=== PATIENT | male | born 1980 | race Two or more races ===

== ENCOUNTER 2019-01-15 20:01 | Inpatient (IN) | payer SELFPAY ==
[~2019-01-15] VITALS: Ht 182.9 cm; Wt 102.7 kg
[2019-01-15 20:47] LABS: BASO # 0.1 x10^3/uL (0.0-0.2); BASO % 1 % (0-3); EOS # 0.4 x10^3/uL (0.0-0.7); EOS % 5 % (0-3); HEMATOCRIT 41.4 % (39.0-53.0); HEMOGLOBIN 14.2 g/dL (13.0-17.5); LYMPH # 1.7 x10^3/uL (1.0-4.8); LYMPH % 25 % (24-48); MEAN CORPUSCULAR HEMOGLOBIN 31 pg (25-35); MEAN CORPUSCULAR HGB CONC 34 g/dL (31-37); MEAN CORPUSCULAR VOLUME 91 fL (79-100); MONO # 0.6 x10^3/uL (0.0-1.1); MONO % 8 % (0-9); NEUT # 4.2 x10^3uL (1.8-7.7); NEUT % 61 % (31-73); PLATELET COUNT 173 x10^3/uL (140-400); RED BLOOD COUNT 4.56 x10^6/uL (4.30-5.70); WHITE BLOOD COUNT 6.9 x10^3/uL (4.0-11.0)
[2019-01-15] MEDS ORDERED: IV NORMAL SALINE 1000ML BAG 1,000 ML IV ONE (21:00)
[2019-01-15 21:01] LABS: CALCIUM 9.1 mg/dL (8.5-10.1); CREATININE 1.1 mg/dL (0.7-1.3); GFR 75.7; POTASSIUM 3.9 mmol/L (3.5-5.1)
[2019-01-15 21:08] LABS: ALBUMIN 3.7 g/dL (3.4-5.0); ALBUMIN/GLOBULIN RATIO 1.1 (1.0-1.7); MAGNESIUM 2.4 mg/dL (1.8-2.4); TOTAL BILIRUBIN 0.3 mg/dL (0.2-1.0); TOTAL PROTEIN 7.1 g/dL (6.4-8.2)
[2019-01-15 22:01] LABS: BILIRUBIN,URINE NEGATIVE (NEG); CLARITY,URINE CLOUDY; COLOR,URINE YELLOW; NITRITE,URINE NEGATIVE (NEG); PROTEIN,URINE 30 mg/dL (NEG-TRACE)
[2019-01-15 22:09] LABS: AMORPHOUS SEDIMENT,UR PRESENT /HPF; SQUAMOUS EPITHELIAL CELL,UR FEW /LPF
[2019-01-15 22:10] LABS: BACTERIA,URINE 0 /HPF (0-FEW)
--- NOTE | 2019-01-15 22:41 | RAD ---
CLINICAL HISTORY: Right upper quadrant pain. COMPARISON: None available. TECHNIQUE: Limited ultrasound examination of the right upper quadrant of the abdomen was performed FINDINGS: Liver: The liver measures 17.4 cm in length in the right mid clavicular line. Mild increased echogenicity of the liver relative to the right kidney likely hepatic steatosis. There is no focal abnormality of the liver. Portal and hepatic venous flow is confirmed with normal waveforms. Gallbladder/Biliary: Gallstones are seen within the gallbladder. Mild associated wall thickening is seen measuring up to 4 mm in thickness. Trace pericholecystic fluid. There is pain with direct transducer pressure over the gallbladder.The common bile duct measures 0.7 cm. The right kidney measures 10.6 cm in bipolar length. No focal renal lesion. No hydronephrosis. There is no free fluid in the subhepatic space. IMPRESSION: 1. Cholelithiasis with mild gallbladder wall thickening and trace pericholecystic fluid with associated positive sonographic Moffett's sign. This constellation of sonographic findings would be seen with acute cholecystitis. 2. Fatty liver Electronically signed by: Isaac Ramirez MD (01/15/2019 10:38 PM) [facility]
--- NOTE | 2019-01-15 22:55 | PHYS DOC ---
Past Medical History Past Medical History: Diverticulosis Past Surgical History: Other Additional Past Surgical Histo: right ankle Alcohol Use: Rarely Drug Use: Marijuana Adult General Chief Complaint Chief Complaint: ABDOMINAL PAIN HPI HPI Patient is a 38 year old [f__sex] who presents with [] Review of Systems Review of Systems Constitutional: Denies fever or chills [] Eyes: Denies change in visual acuity, redness, or eye pain [] HENT: Denies nasal congestion or sore throat [] Respiratory: Denies cough or shortness of breath [] Cardiovascular: No additional information not addressed in HPI [] GI: Denies abdominal pain, nausea, vomiting, bloody stools or diarrhea [] : Denies dysuria or hematuria [] Musculoskeletal: Denies back pain or joint pain [] Integument: Denies rash or skin lesions [] Neurologic: Denies headache, focal weakness or sensory changes [] Endocrine: Denies polyuria or polydipsia [] All other systems were reviewed and found to be within normal limits, except as documented in this note. Current Medications Current Medications Current Medications Medications (Trade) Dose Ordered Sig/Lavelle Start Time Stop Time Status Last Admin Dose Admin Sodium Chloride 1,000 ml @ 1,000 mls/hr 1X ONCE 01/15/19 21:00 01/15/19 21:59 DC 01/15/19 20:41 1,000 MLS/HR Allergies Allergies Allergies Coded Allergies Type Severity Reaction Last Updated Verified No Known Drug Allergies 01/15/19 No Physical Exam Physical Exam Constitutional: Well developed, well nourished, no acute distress, non-toxic appearance. [] HENT: Normocephalic, atraumatic, bilateral external ears normal, oropharynx moist, no oral exudates, nose normal. [] Eyes: PERRLA, EOMI, conjunctiva normal, no discharge. [] Neck: Normal range of motion, no tenderness, supple, no stridor. [] Cardiovascular:Heart rate regular rhythm, no murmur [] Lungs & Thorax: Bilateral breath sounds clear to auscultation [] Abdomen: Bowel sounds normal, soft, no tenderness, no masses, no pulsatile masses. [] Skin: Warm, dry, no erythema, no rash. [] Back: No tenderness, no CVA tenderness. [] Extremities: No tenderness, no cyanosis, no clubbing, ROM intact, no edema. [] Neurologic: Alert and oriented X 3, normal motor function, normal sensory fun ction, no focal deficits noted. [] Psychologic: Affect normal, judgement normal, mood normal. [] Current Patient Data Vital Signs Vital Signs Date Time Temp Pulse Resp B/P (MAP) Pulse Ox O2 Delivery O2 Flow Rate FiO2 01/15/19 20:08 98.3 53 16 135/90 (105) 97 98.3 Lab Values Laboratory Tests Test 01/15/19 20:36 01/15/19 21:40 White Blood Count 6.9 x10^3/uL (4.0-11.0) Red Blood Count 4.56 x10^6/uL (4.30-5.70) Hemoglobin 14.2 g/dL (13.0-17.5) Hematocrit 41.4 % (39.0-53.0) Mean Corpuscular Volume 91 fL (79-100) Mean Corpuscular Hemoglobin 31 pg (25-35) Mean Corpuscular Hemoglobin Concent 34 g/dL (31-37) Red Cell Distribution Width 14.0 % (11.5-14.5) Platelet Count 173 x10^3/uL (140-400) Neutrophils (%) (Auto) 61 % (31-73) Lymphocytes (%) (Auto) 25 % (24-48) Monocytes (%) (Auto) 8 % (0-9) Eosinophils (%) (Auto) 5 % (0-3) H Basophils (%) (Auto) 1 % (0-3) Neutrophils # (Auto) 4.2 x10^3uL (1.8-7.7) Lymphocytes # (Auto) 1.7 x10^3/uL (1.0-4.8) Monocytes # (Auto) 0.6 x10^3/uL (0.0-1.1) Eosinophils # (Auto) 0.4 x10^3/uL (0.0-0.7) Basophils # (Auto) 0.1 x10^3/uL (0.0-0.2) Sodium Level 142 mmol/L (136-145) Potassium Level 3.9 mmol/L (3.5-5.1) Chloride Level 104 mmol/L (98-107) Carbon Dioxide Level 29 mmol/L (21-32) Anion Gap 9 (6-14) Blood Urea Nitrogen 17 mg/dL (8-26) Creatinine 1.1 mg/dL (0.7-1.3) Estimated GFR (Cockcroft-Gault) 75.7 BUN/Creatinine Ratio 15 (6-20) Glucose Level 102 mg/dL (70-99) H Calcium Level 9.1 mg/dL (8.5-10.1) Magnesium Level 2.4 mg/dL (1.8-2.4) Total Bilirubin 0.3 mg/dL (0.2-1.0) Aspartate Amino Transferase (AST) 10 U/L (15-37) L Alanine Aminotransferase (ALT) 15 U/L (16-63) L Alkaline Phosphatase 53 U/L (46-116) Total Protein 7.1 g/dL (6.4-8.2) Albumin 3.7 g/dL (3.4-5.0) Albumin/Globulin Ratio 1.1 (1.0-1.7) Lipase 162 U/L (73-393) Urine Collection Type Unknown Urine Color Yellow Urine Clarity Cloudy Urine pH 8.0 Urine Specific [place] 1.025 Urine Protein 30 mg/dL (NEG-TRACE) Urine Glucose (UA) Negative mg/dL (NEG) Urine Ketones (Stick) Negative mg/dL (NEG) Urine Blood Negative (NEG) Urine Nitrite Negative (NEG) Urine Bilirubin Negative (NEG) Urine Urobilinogen Dipstick 1.0 mg/dL (0.2 mg/dL) Urine Leukocyte Esterase Negative (NEG) Urine RBC 1-2 /HPF (0-2) Urine WBC 1-4 /HPF (0-4) Urine Squamous Epithelial Cells Few /LPF Urine Amorphous Sediment Present /HPF Urine Bacteria 0 /HPF (0-FEW) Urine Mucus Marked /LPF Laboratory Tests 01/15/19 20:36 Laboratory Tests 01/15/19 20:36 EKG EKG [] Radiology/Procedures Radiology/Procedures [] Course & Med Decision Making Course & Med Decision Making Pertinent Labs and Imaging studies reviewed. (See chart for details) [] Dragon Disclaimer Dragon Disclaimer This electronic medical record was generated, in whole or in part, using a voice recognition dictation system. Departure Departure Impression: Primary Impression: Acute cholecystitis Disposition: ADMITTED INPATIENT Condition: STABLE Referrals: NO PCP (PCP) JAC YODER DO January 15, 2019 22:55
[2019-01-15] MEDS ORDERED: ONDANSETRON PF 4 MG/2 ML VIAL. IV PRN (23:00)
[2019-01-15] MEDS: fentaNYL PF VIAL 100 MCG/2 ML VIAL IV PRN (23:17)
[2019-01-15 23:50] VITALS: BP 135/94
[2019-01-16] VITALS (13 sets, daily range): BP systolic 113–136; BP diastolic 81–92
--- NOTE | 2019-01-16 01:00 | NUR ---
ADMIT: The patient, VIVI IRENE, 38 y/o, M admitted by MARIO SALGADO III, DO, was given written information regarding hospital policies, unit procedures and contact persons. Pt afebrile and VSS, with c/o mild pain. Admission assessment complete, admit packet reviewed, and valuables were checked and left in room with pt. Pt orientated to room, family at bedside, call light within reach, and will continue to monitor.
[2019-01-16] MEDS: fentaNYL PF VIAL 100 MCG/2 ML VIAL IV PRN ×7 (07:07→22:02)
--- NOTE | 2019-01-16 08:18 | PDOC2 ---
GLEN VERDUZCO INTERNAL AUDIT DIRECTOR 01/16/19 0818: CONSULT Date of Consult Date of Consult DATE: 01/16/19 TIME: 08:15 Reason for Consult Reason for Consult: cholecystitis Referring Physician Referring Physician: ER Identification/Chief Complaint Chief Complaint abdominal pain Source Source: Chart review, Patient History of Present Illness Reason for Visit: Acute onset epigastric, ruq pain yesterday afternoon. Radiation of pain to back. No nausea or emesis. Reports has happened 3-4 times this month, however never this severe. No constipation or diarrhea. Not sure if related to any foods. Seems to just occur Past Medical History Past Medical History no pertinent medical hx Past Surgical History Past Surgical History: No pertinent history Family History Family History: Other (noncontributory to current illness ) Social History <1 pack per day ALCOHOL: rare Drugs: Marijuana Lives: with Family Current Problem List Problem List Problems Medical Problems: (1) Acute cholecystitis Status: Acute Current Medications Current Medications Current Medications Sodium Chloride 1,000 ml @ 1,000 mls/hr 1X ONCE IV Last administered on 01/15/19at 20:41; Start 01/15/19 at 21:00; Stop 01/15/19 at 21:59; Status DC Ondansetron HCl (Zofran) 4 mg PRN Q8HRS PRN IV NAUSEA/VOMITING 1st choice Last administered on 01/15/19at 23:17; Start 01/15/19 at 23:00; Stop 01/16/19 at 22:59 Fentanyl Citrate (Fentanyl 2ml Vial) 50 mcg PRN Q2HRS PRN IV SEVERE PAIN Last administered on 01/16/19at 07:07; Start 01/15/19 at 23:00 Cefazolin Sodium/ Dextrose 50 ml @ 100 mls/hr 1X PREOP IV ; Start 01/16/19 at 08:15; Stop 01/17/19 at 18:00 Allergies Allergies: Coded Allergies: No Known Drug Allergies (Unverified , 01/15/19) ROS General: No: Chills, Other (fevers) PSYCHOLOGICAL ROS: No: Anxiety, Depression Eyes: No Blurry vision, No Double vision HEENT: No: Heacaches, Sore Throat Hematological and Lymphatic: No: Bleeding Problems, Blood Clots Respiratory: No: Cough, Shortness of breath Cardiovascular: No Chest Pain, No Palpitations Gastrointestinal: Yes Other (see hpi) Genitourinary: No Dysuria, No Hematuria Musculoskeletal: No Joint Pain, No Muscle Pain Neurological: No Confusion, No Impaired Coord/balance Skin: No Pruritus, No Rash Physical Exam General: Alert, Oriented X3, Cooperative, No acute distress HEENT: PERRLA, Mucous membr. moist/pink Lungs: Clear to auscultation, Normal air movement Heart: Regular rate, Normal S1, Normal S2, No murmurs Abdomen: Soft, Other (epigastric, RUQ TTP) Extremities: No clubbing, No cyanosis Skin: No rashes, No breakdown Neuro: Normal gait, Normal speech Psych/Mental Status: Mental status NL, Mood NL MUSCULOSKELETAL: No deformity, No swelling Vitals VITALS Vital Signs Date Time Temp Pulse Resp B/P (MAP) Pulse Ox O2 Delivery O2 Flow Rate FiO2 01/16/19 07:07 18 Room Air 01/16/19 07:00 97.5 53 128/86 (100) 97 97.5 Labs Labs Laboratory Tests Test 01/15/19 20:36 01/15/19 21:40 White Blood Count 6.9 x10^3/uL (4.0-11.0) Red Blood Count 4.56 x10^6/uL (4.30-5.70) Hemoglobin 14.2 g/dL (13.0-17.5) Hematocrit 41.4 % (39.0-53.0) Mean Corpuscular Volume 91 fL (79-100) Mean Corpuscular Hemoglobin 31 pg (25-35) Mean Corpuscular Hemoglobin Concent 34 g/dL (31-37) Red Cell Distribution Width 14.0 % (11.5-14.5) Platelet Count 173 x10^3/uL (140-400) Neutrophils (%) (Auto) 61 % (31-73) Lymphocytes (%) (Auto) 25 % (24-48) Monocytes (%) (Auto) 8 % (0-9) Eosinophils (%) (Auto) 5 % (0-3) Basophils (%) (Auto) 1 % (0-3) Neutrophils # (Auto) 4.2 x10^3uL (1.8-7.7) Lymphocytes # (Auto) 1.7 x10^3/uL (1.0-4.8) Monocytes # (Auto) 0.6 x10^3/uL (0.0-1.1) Eosinophils # (Auto) 0.4 x10^3/uL (0.0-0.7) Basophils # (Auto) 0.1 x10^3/uL (0.0-0.2) Sodium Level 142 mmol/L (136-145) Potassium Level 3.9 mmol/L (3.5-5.1) Chloride Level 104 mmol/L (98-107) Carbon Dioxide Level 29 mmol/L (21-32) Anion Gap 9 (6-14) Blood Urea Nitrogen 17 mg/dL (8-26) Creatinine 1.1 mg/dL (0.7-1.3) Estimated GFR (Cockcroft-Gault) 75.7 BUN/Creatinine Ratio 15 (6-20) Glucose Level 102 mg/dL (70-99) Calcium Level 9.1 mg/dL (8.5-10.1) Magnesium Level 2.4 mg/dL (1.8-2.4) Total Bilirubin 0.3 mg/dL (0.2-1.0) Aspartate Amino Transf (AST/SGOT) 10 U/L (15-37) Alanine Aminotransferase (ALT/SGPT) 15 U/L (16-63) Alkaline Phosphatase 53 U/L (46-116) Total Protein 7.1 g/dL (6.4-8.2) Albumin 3.7 g/dL (3.4-5.0) Albumin/Globulin Ratio 1.1 (1.0-1.7) Lipase 162 U/L (73-393) Urine Collection Type Unknown Urine Color Yellow Urine Clarity Cloudy Urine pH 8.0 Urine Specific [place] 1.025 Urine Protein 30 mg/dL (NEG-TRACE) Urine Glucose (UA) Negative mg/dL (NEG) Urine Ketones (Stick) Negative mg/dL (NEG) Urine Blood Negative (NEG) Urine Nitrite Negative (NEG) Urine Bilirubin Negative (NEG) Urine Urobilinogen Dipstick 1.0 mg/dL (0.2 mg/dL) Urine Leukocyte Esterase Negative (NEG) Urine RBC 1-2 /HPF (0-2) Urine WBC 1-4 /HPF (0-4) Urine Squamous Epithelial Cells Few /LPF Urine Amorphous Sediment Present /HPF Urine Bacteria 0 /HPF (0-FEW) Urine Mucus Marked /LPF Laboratory Tests Test 01/15/19 20:36 01/15/19 21:40 White Blood Count 6.9 x10^3/uL (4.0-11.0) Red Blood Count 4.56 x10^6/uL (4.30-5.70) Hemoglobin 14.2 g/dL (13.0-17.5) Hematocrit 41.4 % (39.0-53.0) Mean Corpuscular Volume 91 fL (79-100) Mean Corpuscular Hemoglobin 31 pg (25-35) Mean Corpuscular Hemoglobin Concent 34 g/dL (31-37) Red Cell Distribution Width 14.0 % (11.5-14.5) Platelet Count 173 x10^3/uL (140-400) Neutrophils (%) (Auto) 61 % (31-73) Lymphocytes (%) (Auto) 25 % (24-48) Monocytes (%) (Auto) 8 % (0-9) Eosinophils (%) (Auto) 5 % (0-3) Basophils (%) (Auto) 1 % (0-3) Neutrophils # (Auto) 4.2 x10^3uL (1.8-7.7) Lymphocytes # (Auto) 1.7 x10^3/uL (1.0-4.8) Monocytes # (Auto) 0.6 x10^3/uL (0.0-1.1) Eosinophils # (Auto) 0.4 x10^3/uL (0.0-0.7) Basophils # (Auto) 0.1 x10^3/uL (0.0-0.2) Sodium Level 142 mmol/L (136-145) Potassium Level 3.9 mmol/L (3.5-5.1) Chloride Level 104 mmol/L (98-107) Carbon Dioxide Level 29 mmol/L (21-32) Anion Gap 9 (6-14) Blood Urea Nitrogen 17 mg/dL (8-26) Creatinine 1.1 mg/dL (0.7-1.3) Estimated GFR (Cockcroft-Gault) 75.7 BUN/Creatinine Ratio 15 (6-20) Glucose Level 102 mg/dL (70-99) Calcium Level 9.1 mg/dL (8.5-10.1) Magnesium Level 2.4 mg/dL (1.8-2.4) Total Bilirubin 0.3 mg/dL (0.2-1.0) Aspartate Amino Transf (AST/SGOT) 10 U/L (15-37) Alanine Aminotransferase (ALT/SGPT) 15 U/L (16-63) Alkaline Phosphatase 53 U/L (46-116) Total Protein 7.1 g/dL (6.4-8.2) Albumin 3.7 g/dL (3.4-5.0) Albumin/Globulin Ratio 1.1 (1.0-1.7) Lipase 162 U/L (73-393) Urine Collection Type Unknown Urine Color Yellow Urine Clarity Cloudy Urine pH 8.0 Urine Specific [place] 1.025 Urine Protein 30 mg/dL (NEG-TRACE) Urine Glucose (UA) Negative mg/dL (NEG) Urine Ketones (Stick) Negative mg/dL (NEG) Urine Blood Negative (NEG) Urine Nitrite Negative (NEG) Urine Bilirubin Negative (NEG) Urine Urobilinogen Dipstick 1.0 mg/dL (0.2 mg/dL) Urine Leukocyte Esterase Negative (NEG) Urine RBC 1-2 /HPF (0-2) Urine WBC 1-4 /HPF (0-4) Urine Squamous Epithelial Cells Few /LPF Urine Amorphous Sediment Present /HPF Urine Bacteria 0 /HPF (0-FEW) Urine Mucus Marked /LPF Assessment/Plan Assessment/Plan cholecystitis plan lap ludmila today OLIVIER SWANN MD 01/16/19 0847: CONSULT Assessment/Plan Assessment/Plan Pt seen and examined. Agree with Ms. Verduzco's note Pain has been occurring for a year, worse last month, severe yesterday, better today. TTP RUQ US c/w calculous cholecystitis TO OR for laparoscopic cholecystectomy with cholangiogram, possible open. R/R/B/A d/w pt and pt's . Risks, including, but not limited to: bleeding, infection, damage to surrounding structures, risk of anesthesia, risk of open, risk of . They appear to understand, their questions are answered and they elect to proceed. Thanks for consult! GLEN VERDUZCO INTERNAL AUDIT DIRECTOR January 16, 2019 08:18 OLIVIER SWANN MD January 16, 2019 08:47
[2019-01-16] MEDS ORDERED: IV RINGERS,LACTATED 1000ML 1,000 ML IV SCH (09:03)
[2019-01-16] MEDS ORDERED: PROCHLORPERAZINE 10 MG/2 ML VIAL. IV PRN (09:15)
[2019-01-16] MEDS ORDERED: MORPHINE SULFATE 2 MG/ML VIAL. IV PRN (09:15)
[2019-01-16] MEDS ORDERED: ONDANSETRON PF 4 MG/2 ML VIAL. IV PRN ×2 (09:15→13:30)
[2019-01-16] MEDS ORDERED: HYDROmorphone 2 MG/ML VIAL IV PRN (09:15)
[2019-01-16] MEDS ORDERED: fentaNYL PF VIAL 100 MCG/2 ML VIAL IV PRN (09:15)
[2019-01-16] MEDS ORDERED: PROPOFOL 20 ML IV ONE ×2 (10:10→12:54)
[2019-01-16] MEDS ORDERED: ONDANSETRON PF 4 MG/2 ML VIAL. ONE (10:10)
[2019-01-16] MEDS ORDERED: DEXAMETHASONE SOD PHOS 4 MG/ML VIAL ONE (10:10)
[2019-01-16] MEDS ORDERED: LIDOCAINE 2% PF 5 ML VIAL. ONE (10:10)
[2019-01-16] MEDS ORDERED: MIDAZOLAM HCL/PF 2 MG/2 ML VIAL. ONE (10:11)
[2019-01-16] MEDS ORDERED: ROCURONIUM 50 MG/5 ML VIAL. ONE (10:11)
[2019-01-16] MEDS ORDERED: fentaNYL PF VIAL 100 MCG/2 ML VIAL ONE ×3 (10:12→13:47)
--- NOTE | 2019-01-16 10:15 | NUR ---
Pt off unit for surgery.
[2019-01-16] MEDS ORDERED: SURGICEL HEMOSTAT 4X8 EACH. ONE (10:41)
[2019-01-16] MEDS ORDERED: BUPIVAC MPF-EPI 0.5%-1:200000 30 ML VIAL. ONE (10:41)
[2019-01-16] MEDS ORDERED: IOHEXOL 300 MG/ML 50 ML VIAL. ONE (10:41)
[2019-01-16] MEDS ORDERED: BISACODYL 10 MG SUPP.RECT. ONE (10:50)
[2019-01-16] MEDS ORDERED: KETOROLAC 30 MG/ML INJ FOR OR. INJ ONE (11:36)
[2019-01-16] MEDS ORDERED: SUCCINYLCHOLINE 200 MG/10 ML VIAL. ONE (11:37)
--- NOTE | 2019-01-16 11:46 | PDOC1 ---
History and Physical Date of Admission Date of Admission DATE: 01/16/19 TIME: 11:45 Identification/Chief Complaint Chief Complaint SEEN IN ER WITH Onset epigastric, ruq pain yesterday afternoon. Radiation of pain to back. No nausea or emesis. has happened 3-4 times this month, however never this severe GALLSTONES suspected on US Past Medical History Past Medical History Past Medical History Past Medical History Past Medical History: Diverticulosis Past Surgical History: Other Additional Past Surgical Histo: right ankle Alcohol Use: Rarely Drug Use: Marijuana FAMILY HX OBESITY Past Surgical History Past Surgical History: No pertinent history Family History Family History: Other (noncontributory to current illness ) Social History Smoke: <1 pack per day ALCOHOL: rare Drugs: Marijuana Current Problem List Problem List Problems Medical Problems: (1) Acute cholecystitis Status: Acute Current Medications Current Medications Current Medications Sodium Chloride 1,000 ml @ 1,000 mls/hr 1X ONCE IV Last administered on 01/15/19at 20:41; Start 01/15/19 at 21:00; Stop 01/15/19 at 21:59; Status DC Ondansetron HCl (Zofran) 4 mg PRN Q8HRS PRN IV NAUSEA/VOMITING 1st choice Last administered on 01/15/19at 23:17; Start 01/15/19 at 23:00; Stop 01/16/19 at 22:59 Fentanyl Citrate (Fentanyl 2ml Vial) 50 mcg PRN Q2HRS PRN IV SEVERE PAIN Last administered on 01/16/19at 07:07; Start 01/15/19 at 23:00 Cefazolin Sodium/ Dextrose 50 ml @ 100 mls/hr 1X PREOP IV ; Start 01/16/19 at 08:15; Stop 01/17/19 at 18:00 Ondansetron HCl (Zofran) 4 mg PRN Q6HRS PRN IV NAUSEA/VOMITING; Start 01/16/19 at 09:15; Stop 01/17/19 at 09:14 Fentanyl Citrate (Fentanyl 2ml Vial) 25 mcg PRN Q5MIN PRN IV MILD PAIN 1-3; Start 01/16/19 at 09:15; Stop 01/17/19 at 09:14 Fentanyl Citrate (Fentanyl 2ml Vial) 50 mcg PRN Q5MIN PRN IV MODERATE TO SEVERE PAIN; Start 01/16/19 at 09:15; Stop 01/17/19 at 09:14 Morphine Sulfate (Morphine Sulfate) 1 mg PRN Q10MIN PRN IV SEVERE PAIN 7-10; Start 01/16/19 at 09:15; Stop 01/17/19 at 09:14 Ringer's Solution 1,000 ml @ 30 mls/hr Q24H IV ; Start 01/16/19 at 09:03; Stop 01/16/19 at 21:02 Hydromorphone HCl (Dilaudid) 0.5 mg PRN Q10MIN PRN IV SEV PAIN, Second choice; Start 01/16/19 at 09:15; Stop 01/17/19 at 09:14 Prochlorperazine Edisylate (Compazine) 5 mg PACU PRN PRN IV NAUSEA, MRX1; Start 01/16/19 at 09:15; Stop 01/17/19 at 09:14 Propofol 20 ml @ As Directed STK-MED ONCE IV ; Start 01/16/19 at 10:10; Stop 01/16/19 at 10:11; Status DC Lidocaine HCl (Lidocaine Pf 2% Vial) 5 ml STK-MED ONCE .ROUTE ; Start 01/16/19 at 10:10; Stop 01/16/19 at 10:11; Status DC Dexamethasone Sodium Phosphate (Decadron) 4 mg STK-MED ONCE .ROUTE ; Start 01/16/19 at 10:10; Stop 01/16/19 at 10:11; Status DC Ondansetron HCl (Zofran) 4 mg STK-MED ONCE .ROUTE ; Start 01/16/19 at 10:10; Stop 01/16/19 at 10:11; Status DC Rocuronium [place]ell (Zemuron) 50 mg STK-MED ONCE .ROUTE ; Start 01/16/19 at 1 0:11; Stop 01/16/19 at 10:12; Status DC Midazolam HCl (Versed) 2 mg STK-MED ONCE .ROUTE ; Start 01/16/19 at 10:11; Stop 01/16/19 at 10:12; Status DC Fentanyl Citrate (Fentanyl 2ml Vial) 100 mcg STK-MED ONCE .ROUTE ; Start 01/16/19 at 10:12; Stop 01/16/19 at 10:13; Status DC Ketorolac Tromethamine (Toradol For Or Only) 30 mg STK-MED ONCE INJ ; Start 01/16/19 at 11:36; Stop 01/16/19 at 11:37; Status DC Succinylcholine Chloride (Anectine) 200 mg STK-MED ONCE .ROUTE ; Start 01/16/19 at 11:37; Stop 01/16/19 at 11:38; Status DC Heparin Sodium (Porcine) 1000 unit/Sodium Chloride 1,001 ml @ 1,001 mls/hr 1X ONCE IRR ; Start 01/16/19 at 12:00; Stop 01/16/19 at 12:59 Bupivacaine HCl/ Epinephrine Bitart (Sensorcain-Mpf Epi 0.5%-1:[id number]) 30 ml STK-MED ONCE .ROUTE ; Start 01/16/19 at 10:41; Stop 01/16/19 at 11:41; Status DC Iohexol (Omnipaque 300 Mg/ml) 50 ml STK-MED ONCE .ROUTE ; Start 01/16/19 at 10:41; Stop 01/16/19 at 11:42; Status DC Cellulose (Surgicel Hemostat 4x8) 1 each STK-MED ONCE .ROUTE ; Start 01/16/19 at 10:41; Stop 01/16/19 at 11:42; Status DC Allergies Allergies: Coded Allergies: No Known Drug Allergies (Unverified , 01/15/19) ROS Review of System Review of Systems Review of Systems Constitutional: Denies fever or chills [] Eyes: Denies change in visual acuity, redness, or eye pain [] HENT: Denies nasal congestion or sore throat [] Respiratory: Denies cough or shortness of breath [] Cardiovascular: No additional information not addressed in HPI [] GI: Denies abdominal pain, nausea, vomiting, bloody stools or diarrhea [] : Denies dysuria or hematuria [] Musculoskeletal: Denies back pain or joint pain [] Integument: Denies rash or skin lesions [] Neurologic: Denies headache, focal weakness or sensory changes [] Endocrine: Denies polyuria or polydipsia [] 14 PT systems were reviewed and found to be within normal limits, except as documented Physical Exam Physical Exam Physical Exam Physical Exam Constitutional: Well developed, well nourished, no acute distress, non-toxic appearance. [] HENT: Normocephalic, atraumatic, bilateral external ears normal, oropharynx moist, no oral exudates, nose normal. [] Eyes: PERRLA, EOMI, conjunctiva normal, no discharge. [] Neck: Normal range of motion, no tenderness, supple, no stridor. [] Cardiovascular:Heart rate regular rhythm, no murmur [] Lungs & Thorax: Bilateral breath sounds clear to auscultation [] Abdomen: Bowel sounds normal, soft, no tenderness, no masses, no pulsatile masses. [] Skin: Warm, dry, no erythema, no rash. [] Back: No tenderness, no CVA tenderness. [] Extremities: No tenderness, no cyanosis, no clubbing, ROM intact, no edema. [] Neurologic: Alert and oriented X 3, normal motor function, normal sensory function, no focal deficits noted. [] Psychologic: Affect normal, judgement normal, mood normal. [] General: Alert, Oriented X3, Cooperative, No acute distress, mild distress HEENT: Atraumatic, PERRLA, EOMI, Mucous membr. moist/pink Lungs: Clear to auscultation Heart: S1S2, RRR, no thrills Rectal Exam: not examined PELVIC: Examination not indicated Extremities: No cyanosis Neuro: Normal speech, Normal tone, Sensation intact, Cranial nerves 3-12 NL Psych/Mental Status: Mental status NL, Mood NL Vitals Vitals Vital Signs Date Time Temp Pulse Resp B/P (MAP) Pulse Ox O2 Delivery O2 Flow Rate FiO2 01/16/19 10:30 97.9 51 17 120/85 98 Room Air 97.9 Labs Labs Laboratory Tests Test 01/15/19 20:36 01/15/19 21:40 White Blood Count 6.9 x10^3/uL (4.0-11.0) Red Blood Count 4.56 x10^6/uL (4.30-5.70) Hemoglobin 14.2 g/dL (13.0-17.5) Hematocrit 41.4 % (39.0-53.0) Mean Corpuscular Volume 91 fL (79-100) Mean Corpuscular Hemoglobin 31 pg (25-35) Mean Corpuscular Hemoglobin Concent 34 g/dL (31-37) Red Cell Distribution Width 14.0 % (11.5-14.5) Platelet Count 173 x10^3/uL (140-400) Neutrophils (%) (Auto) 61 % (31-73) Lymphocytes (%) (Auto) 25 % (24-48) Monocytes (%) (Auto) 8 % (0-9) Eosinophils (%) (Auto) 5 % (0-3) Basophils (%) (Auto) 1 % (0-3) Neutrophils # (Auto) 4.2 x10^3uL (1.8-7.7) Lymphocytes # (Auto) 1.7 x10^3/uL (1.0-4.8) Monocytes # (Auto) 0.6 x10^3/uL (0.0-1.1) Eosinophils # (Auto) 0.4 x10^3/uL (0.0-0.7) Basophils # (Auto) 0.1 x10^3/uL (0.0-0.2) Sodium Level 142 mmol/L (136-145) Potassium Level 3.9 mmol/L (3.5-5.1) Chloride Level 104 mmol/L (98-107) Carbon Dioxide Level 29 mmol/L (21-32) Anion Gap 9 (6-14) Blood Urea Nitrogen 17 mg/dL (8-26) Creatinine 1.1 mg/dL (0.7-1.3) Estimated GFR (Cockcroft-Gault) 75.7 BUN/Creatinine Ratio 15 (6-20) Glucose Level 102 mg/dL (70-99) Calcium Level 9.1 mg/dL (8.5-10.1) Magnesium Level 2.4 mg/dL (1.8-2.4) Total Bilirubin 0.3 mg/dL (0.2-1.0) Aspartate Amino Transf (AST/SGOT) 10 U/L (15-37) Alanine Aminotransferase (ALT/SGPT) 15 U/L (16-63) Alkaline Phosphatase 53 U/L (46-116) Total Protein 7.1 g/dL (6.4-8.2) Albumin 3.7 g/dL (3.4-5.0) Albumin/Globulin Ratio 1.1 (1.0-1.7) Lipase 162 U/L (73-393) Urine Collection Type Unknown Urine Color Yellow Urine Clarity Cloudy Urine pH 8.0 Urine Specific [place] 1.025 Urine Protein 30 mg/dL (NEG-TRACE) Urine Glucose (UA) Negative mg/dL (NEG) Urine Ketones (Stick) Negative mg/dL (NEG) Urine Blood Negative (NEG) Urine Nitrite Negative (NEG) Urine Bilirubin Negative (NEG) Urine Urobilinogen Dipstick 1.0 mg/dL (0.2 mg/dL) Urine Leukocyte Esterase Negative (NEG) Urine RBC 1-2 /HPF (0-2) Urine WBC 1-4 /HPF (0-4) Urine Squamous Epithelial Cells Few /LPF Urine Amorphous Sediment Present /HPF Urine Bacteria 0 /HPF (0-FEW) Urine Mucus Marked /LPF Laboratory Tests Test 01/15/19 20:36 01/15/19 21:40 White Blood Count 6.9 x10^3/uL (4.0-11.0) Red Blood Count 4.56 x10^6/uL (4.30-5.70) Hemoglobin 14.2 g/dL (13.0-17.5) Hematocrit 41.4 % (39.0-53.0) Mean Corpuscular Volume 91 fL (79-100) Mean Corpuscular Hemoglobin 31 pg (25-35) Mean Corpuscular Hemoglobin Concent 34 g/dL (31-37) Red Cell Distribution Width 14.0 % (11.5-14.5) Platelet Count 173 x10^3/uL (140-400) Neutrophils (%) (Auto) 61 % (31-73) Lymphocytes (%) (Auto) 25 % (24-48) Monocytes (%) (Auto) 8 % (0-9) Eosinophils (%) (Auto) 5 % (0-3) Basophils (%) (Auto) 1 % (0-3) Neutrophils # (Auto) 4.2 x10^3uL (1.8-7.7) Lymphocytes # (Auto) 1.7 x10^3/uL (1.0-4.8) Monocytes # (Auto) 0.6 x10^3/uL (0.0-1.1) Eosinophils # (Auto) 0.4 x10^3/uL (0.0-0.7) Basophils # (Auto) 0.1 x10^3/uL (0.0-0.2) Sodium Level 142 mmol/L (136-145) Potassium Level 3.9 mmol/L (3.5-5.1) Chloride Level 104 mmol/L (98-107) Carbon Dioxide Level 29 mmol/L (21-32) Anion Gap 9 (6-14) Blood Urea Nitrogen 17 mg/dL (8-26) Creatinine 1.1 mg/dL (0.7-1.3) Estimated GFR (Cockcroft-Gault) 75.7 BUN/Creatinine Ratio 15 (6-20) Glucose Level 102 mg/dL (70-99) Calcium Level 9.1 mg/dL (8.5-10.1) Magnesium Level 2.4 mg/dL (1.8-2.4) Total Bilirubin 0.3 mg/dL (0.2-1.0) Aspartate Amino Transf (AST/SGOT) 10 U/L (15-37) Alanine Aminotransferase (ALT/SGPT) 15 U/L (16-63) Alkaline Phosphatase 53 U/L (46-116) Total Protein 7.1 g/dL (6.4-8.2) Albumin 3.7 g/dL (3.4-5.0) Albumin/Globulin Ratio 1.1 (1.0-1.7) Lipase 162 U/L (73-393) Urine Collection Type Unknown Urine Color Yellow Urine Clarity Cloudy Urine pH 8.0 Urine Specific [place] 1.025 Urine Protein 30 mg/dL (NEG-TRACE) Urine Glucose (UA) Negative mg/dL (NEG) Urine Ketones (Stick) Negative mg/dL (NEG) Urine Blood Negative (NEG) Urine Nitrite Negative (NEG) Urine Bilirubin Negative (NEG) Urine Urobilinogen Dipstick 1.0 mg/dL (0.2 mg/dL) Urine Leukocyte Esterase Negative (NEG) Urine RBC 1-2 /HPF (0-2) Urine WBC 1-4 /HPF (0-4) Urine Squamous Epithelial Cells Few /LPF Urine Amorphous Sediment Present /HPF Urine Bacteria 0 /HPF (0-FEW) Urine Mucus Marked /LPF Images Images REASON: RUQ pain, eval for cholelithiasis/JORGE KNOWS PROCEDURE: ABDOMEN LTD CLINICAL HISTORY: Right upper quadrant pain. COMPARISON: None available. TECHNIQUE: Limited ultrasound examination of the right upper quadrant of the abdomen was performed FINDINGS: Liver: The liver measures 17.4 cm in length in the right mid clavicular line. Mild increased echogenicity of the liver relative to the right kidney likely hepatic steatosis. There is no focal abnormality of the liver. Portal and hepatic venous flow is confirmed with normal waveforms. Gallbladder/Biliary: Gallstones are seen within the gallbladder. Mild associated wall thickening is seen measuring up to 4 mm in thickness. Trace pericholecystic fluid. There is pain with direct transducer pressure over the gallbladder.The common bile duct measures 0.7 cm. The right kidney measures 10.6 cm in bipolar length. No focal renal lesion. No hydronephrosis. There is no free fluid in the subhepatic space. IMPRESSION: 1. Cholelithiasis with mild gallbladder wall thickening and trace pericholecystic fluid with associated positive sonographic Moffett's sign. This constellation of sonographic findings would be seen with acute cholecystitis. 2. Fatty liver Electronically signed by: Isaac Ramirez MD (01/15/2019 10:38 PM) [facility] VTE Prophylaxis Ordered VTE Prophylaxis Devices: Yes VTE Pharmacological Prophylaxi: Yes Assessment/Plan Assessment/Plan IMPRESSION: 1. Cholelithiasis with mild gallbladder wall thickening and trace pericholecystic fluid with associated positive sonographic Moffett's sign. This constellation of sonographic findings would be seen with acute cholecystitis. 2. Fatty liver 3. OBESITY PLAN OR for laparoscopic cholecystectomy with cholangiogram, POST-OP PAIN CONTROL HOME MEDS DVT PROPHYLAXIS IV PROTONIX Surgery consulted HAYDEE CASTILLO MD January 16, 2019 11:45
[2019-01-16] MEDS ORDERED: HEPARIN 1,000 UNIT in IV NORMAL SALINE 1,000 ML for SURG PERIOP IRR ONE (12:00)
[2019-01-16] MEDS ORDERED: SEVOFLURANE 61 TO 120 MINUTES. IH ONE (12:23)
[2019-01-16] MEDS ORDERED: NEOSTIGMINE METHYLSULFATE 5 MG/5 ML SYRINGE. ONE (12:28)
[2019-01-16] MEDS ORDERED: GLYCOPYRROLATE 1 MG/5 ML VIAL. ONE (12:28)
--- NOTE | 2019-01-16 13:10 | RAD ---
C-arm fluoroscopy with fluoroscopic spot views Clinical indications: Intraoperative angiogram during a cholecystectomy. Total fluoroscopic time: 20 seconds. Total postoperative spot views: 2. IMPRESSION: Fluoroscopic spot views demonstrate opacification of a mildly dilated extrahepatic biliary tree. Free flow of contrast material from the common bile duct into the duodenum is seen. No stricture or stone is evident. Electronically signed by: Esteban Rey MD (01/16/2019 1:07 PM) [facility]
--- NOTE | 2019-01-16 13:24 | PDOC4 ---
OPERATIVE NOTE Date: Date: January 16, 2019 Pre-Op Diagnosis: Calculous cholecystitis Post-Op Diagnosis: same Procedure Performed: Laparoscopic cholecystectomy with cholangiogram Surgeon: Dashawn Swann Anesthesia Type: GETA plus local Blood Loss: 50 Specimans Obtained: Gallbladder Findings: chronic adhesions to gallbladder, large gallstone, normal cholangiogram Complications: none Operative Note: After obtaining informed consent, patient was taken to OR, induced under GETA and prepped in the usual fashion. 5 mm port placed umbilical and RUQ, 12 port placed epigastric, all under laparoscopic guidance. Abdominal cavity explored and otherwise unremarkable. Gallbladder had chronic adhesions, especially to duodenum, these were taken down by sharp dissection. Critical view dissected out. Cystic artery ligated with clips. Cholangiogram obtained via cystic duct and was normal. Cystic duct ligated with clips and hemolok. Gallbladder taken off fossa using cautery, placed in bag, delivered and sent to pathology for evaluation. Copious irrigation. No evidence of bleeding or other pathology. Ports removed without bleeding. Fascia repaired with 0 vicryl. Skin repaired with 4 0 monocryl. Dressing placed. Patient tolerated procedure well and sent to PACU in stable condition. All counts correct. No immediate complications. Wound class is 3. OLIVIER SWANN MD January 16, 2019 13:24
[2019-01-16] MEDS ORDERED: 0.9 % SODIUM CHLORIDE 10 ML DISP.SYRIN. IV PRN (13:30)
[2019-01-16] MEDS ORDERED: DEXTROSE 50% 25 GM / 50ML DISP.SYRIN. IV PRN (13:30)
[2019-01-16] MEDS: IV RINGERS,LACTATED 1000ML 1,000 ML IV SCH ×2 (14:00→23:43)
[2019-01-16] MEDS: PANTOPRAZOLE 40 MG TABLET.DR. PO SCH (14:00)
--- NOTE | 2019-01-16 14:30 | NUR ---
Pt returning from surgery. A&o X4, drowsy, VSS, c/o pain 04/02, lap sites x4 CDI. IVF infusing. Frequent VS initiated. Water pitcher filled. Call light within reach. Family at bedside. Will continue to monitor.
[2019-01-16] MEDS: DOCUSATE SODIUM 100 MG CAPSULE. PO SCH (20:46)
[2019-01-16] MEDS: KETOROLAC 30 MG/ML VIAL. IV PRN (20:47)
[2019-01-16] MEDS: HYDROcodone/APAP 5/325MG 1 TAB TABLET PO PRN (22:01)
[2019-01-17] MEDS: HYDROcodone/APAP 5/325MG 1 TAB TABLET PO PRN ×2 (02:44→08:07)
[2019-01-17 03:00] VITALS: BP 130/91
[2019-01-17] MEDS: KETOROLAC 30 MG/ML VIAL. IV PRN (03:50)
[2019-01-17 04:49] LABS: BASO % 0 % (0-3); EOS % 0 % (0-3); HEMATOCRIT 43.3 % (39.0-53.0); HEMOGLOBIN 14.5 g/dL (13.0-17.5); LYMPH # 0.9 x10^3/uL (1.0-4.8); LYMPH % 8 % (24-48); MEAN CORPUSCULAR HEMOGLOBIN 31 pg (25-35); MEAN CORPUSCULAR HGB CONC 34 g/dL (31-37); MEAN CORPUSCULAR VOLUME 92 fL (79-100); MONO # 0.6 x10^3/uL (0.0-1.1); MONO % 6 % (0-9); NEUT # 9.4 x10^3uL (1.8-7.7); NEUT % 86 % (31-73); PLATELET COUNT 167 x10^3/uL (140-400); RED BLOOD COUNT 4.69 x10^6/uL (4.30-5.70); RED CELL DISTRIBUTION WIDTH 13.9 % (11.5-14.5)
[2019-01-17 05:15] LABS: CALCIUM 8.8 mg/dL (8.5-10.1); CREATININE 1.1 mg/dL (0.7-1.3); GFR 75.7; POTASSIUM 4.4 mmol/L (3.5-5.1)
[2019-01-17 06:14] LABS: % BANDS 2 % (0-9); % LYMPHS 2 % (24-48); % MONOS 3 % (0-10); % SEGS 93 % (35-66); PLT ESTIMATE ADEQUATE (ADEQUATE)
[2019-01-17 07:00] VITALS: BP 116/75
[2019-01-17] MEDS: PANTOPRAZOLE 40 MG TABLET.DR. PO SCH (08:07)
[2019-01-17] MEDS: DOCUSATE SODIUM 100 MG CAPSULE. PO SCH (08:07)
[2019-01-17] MEDS: fentaNYL PF VIAL 100 MCG/2 ML VIAL IV PRN (08:49)
--- NOTE | 2019-01-17 09:02 | PDOC ---
PROGRESS NOTES Chief Complaint Chief Complaint 1. Acute Cholelithiasis cholecystitis. 2. Fatty liver 3. OBESITY, BMI 31 History of Present Illness History of Present Illness POS #1, OR for laparoscopic cholecystectomy with cholangiogram, still havign abd pain, has been 05/03 this AM, now 5 Surgery following will try to DC later today Vitals Vitals Vital Signs Date Time Temp Pulse Resp B/P (MAP) Pulse Ox O2 Delivery O2 Flow Rate FiO2 01/17/19 08:49 Room Air 01/17/19 07:00 97.7 48 18 116/75 (89) 97 97.7 Physical Exam General: Alert, Oriented X3, Cooperative, No acute distress, mild distress Heart: Regular rate, Normal S1, Normal S2, No murmurs Abdomen: Soft, Other (epigastric, RUQ TTP) Extremities: No cyanosis Skin: No rashes, No breakdown Labs LABS Laboratory Tests Test 01/17/19 04:25 White Blood Count 11.0 x10^3/uL (4.0-11.0) Red Blood Count 4.69 x10^6/uL (4.30-5.70) Hemoglobin 14.5 g/dL (13.0-17.5) Hematocrit 43.3 % (39.0-53.0) Mean Corpuscular Volume 92 fL (79-100) Mean Corpuscular Hemoglobin 31 pg (25-35) Mean Corpuscular Hemoglobin Concent 34 g/dL (31-37) Red Cell Distribution Width 13.9 % (11.5-14.5) Platelet Count 167 x10^3/uL (140-400) Neutrophils (%) (Auto) 86 % (31-73) Lymphocytes (%) (Auto) 8 % (24-48) Monocytes (%) (Auto) 6 % (0-9) Eosinophils (%) (Auto) 0 % (0-3) Basophils (%) (Auto) 0 % (0-3) Neutrophils # (Auto) 9.4 x10^3uL (1.8-7.7) Lymphocytes # (Auto) 0.9 x10^3/uL (1.0-4.8) Monocytes # (Auto) 0.6 x10^3/uL (0.0-1.1) Eosinophils # (Auto) 0.0 x10^3/uL (0.0-0.7) Basophils # (Auto) 0.0 x10^3/uL (0.0-0.2) Segmented Neutrophils % 93 % (35-66) Band Neutrophils % 2 % (0-9) Lymphocytes % 2 % (24-48) Monocytes % 3 % (0-10) Platelet Estimate Adequate (ADEQUATE) Sodium Level 137 mmol/L (136-145) Potassium Level 4.4 mmol/L (3.5-5.1) Chloride Level 102 mmol/L (98-107) Carbon Dioxide Level 23 mmol/L (21-32) Anion Gap 12 (6-14) Blood Urea Nitrogen 14 mg/dL (8-26) Creatinine 1.1 mg/dL (0.7-1.3) Estimated GFR (Cockcroft-Gault) 75.7 Glucose Level 128 mg/dL (70-99) Calcium Level 8.8 mg/dL (8.5-10.1) Assessment and Plan Assessmemt and Plan Problems Medical Problems: (1) Acute cholecystitis Status: Acute Comment Review of Relevant I have reviewed the following items roberta (where applicable) has been applied. Labs Laboratory Tests Test 01/15/19 20:36 01/15/19 21:40 01/17/19 04:25 White Blood Count 6.9 x10^3/uL (4.0-11.0) 11.0 x10^3/uL (4.0-11.0) Red Blood Count 4.56 x10^6/uL (4.30-5.70) 4.69 x10^6/uL (4.30-5.70) Hemoglobin 14.2 g/dL (13.0-17.5) 14.5 g/dL (13.0-17.5) Hematocrit 41.4 % (39.0-53.0) 43.3 % (39.0-53.0) Mean Corpuscular Volume 91 fL (79-100) 92 fL (79-100) Mean Corpuscular Hemoglobin 31 pg (25-35) 31 pg (25-35) Mean Corpuscular Hemoglobin Concent 34 g/dL (31-37) 34 g/dL (31-37) Red Cell Distribution Width 14.0 % (11.5-14.5) 13.9 % (11.5-14.5) Platelet Count 173 x10^3/uL (140-400) 167 x10^3/uL (140-400) Neutrophils (%) (Auto) 61 % (31-73) 86 % (31-73) Lymphocytes (%) (Auto) 25 % (24-48) 8 % (24-48) Monocytes (%) (Auto) 8 % (0-9) 6 % (0-9) Eosinophils (%) (Auto) 5 % (0-3) 0 % (0-3) Basophils (%) (Auto) 1 % (0-3) 0 % (0-3) Neutrophils # (Auto) 4.2 x10^3uL (1.8-7.7) 9.4 x10^3uL (1.8-7.7) Lymphocytes # (Auto) 1.7 x10^3/uL (1.0-4.8) 0.9 x10^3/uL (1.0-4.8) Monocytes # (Auto) 0.6 x10^3/uL (0.0-1.1) 0.6 x10^3/uL (0.0-1.1) Eosinophils # (Auto) 0.4 x10^3/uL (0.0-0.7) 0.0 x10^3/uL (0.0-0.7) Basophils # (Auto) 0.1 x10^3/uL (0.0-0.2) 0.0 x10^3/uL (0.0-0.2) Sodium Level 142 mmol/L (136-145) 137 mmol/L (136-145) Potassium Level 3.9 mmol/L (3.5-5.1) 4.4 mmol/L (3.5-5.1) Chloride Level 104 mmol/L (98-107) 102 mmol/L (98-107) Carbon Dioxide Level 29 mmol/L (21-32) 23 mmol/L (21-32) Anion Gap 9 (6-14) 12 (6-14) Blood Urea Nitrogen 17 mg/dL (8-26) 14 mg/dL (8-26) Creatinine 1.1 mg/dL (0.7-1.3) 1.1 mg/dL (0.7-1.3) Estimated GFR (Cockcroft-Gault) 75.7 75.7 BUN/Creatinine Ratio 15 (6-20) Glucose Level 102 mg/dL (70-99) 128 mg/dL (70-99) Calcium Level 9.1 mg/dL (8.5-10.1) 8.8 mg/dL (8.5-10.1) Magnesium Level 2.4 mg/dL (1.8-2.4) Total Bilirubin 0.3 mg/dL (0.2-1.0) Aspartate Amino Transf (AST/SGOT) 10 U/L (15-37) Alanine Aminotransferase (ALT/SGPT) 15 U/L (16-63) Alkaline Phosphatase 53 U/L (46-116) Total Protein 7.1 g/dL (6.4-8.2) Albumin 3.7 g/dL (3.4-5.0) Albumin/Globulin Ratio 1.1 (1.0-1.7) Lipase 162 U/L (73-393) Urine Collection Type Unknown Urine Color Yellow Urine Clarity Cloudy Urine pH 8.0 Urine Specific [place] 1.025 Urine Protein 30 mg/dL (NEG-TRACE) Urine Glucose (UA) Negative mg/dL (NEG) Urine Ketones (Stick) Negative mg/dL (NEG) Urine Blood Negative (NEG) Urine Nitrite Negative (NEG) Urine Bilirubin Negative (NEG) Urine Urobilinogen Dipstick 1.0 mg/dL (0.2 mg/dL) Urine Leukocyte Esterase Negative (NEG) Urine RBC 1-2 /HPF (0-2) Urine WBC 1-4 /HPF (0-4) Urine Squamous Epithelial Cells Few /LPF Urine Amorphous Sediment Present /HPF Urine Bacteria 0 /HPF (0-FEW) Urine Mucus Marked /LPF Segmented Neutrophils % 93 % (35-66) Band Neutrophils % 2 % (0-9) Lymphocytes % 2 % (24-48) Monocytes % 3 % (0-10) Platelet Estimate Adequate (ADEQUATE) Laboratory Tests Test 01/17/19 04:25 White Blood Count 11.0 x10^3/uL (4.0-11.0) Red Blood Count 4.69 x10^6/uL (4.30-5.70) Hemoglobin 14.5 g/dL (13.0-17.5) Hematocrit 43.3 % (39.0-53.0) Mean Corpuscular Volume 92 fL (79-100) Mean Corpuscular Hemoglobin 31 pg (25-35) Mean Corpuscular Hemoglobin Concent 34 g/dL (31-37) Red Cell Distribution Width 13.9 % (11.5-14.5) Platelet Count 167 x10^3/uL (140-400) Neutrophils (%) (Auto) 86 % (31-73) Lymphocytes (%) (Auto) 8 % (24-48) Monocytes (%) (Auto) 6 % (0-9) Eosinophils (%) (Auto) 0 % (0-3) Basophils (%) (Auto) 0 % (0-3) Neutrophils # (Auto) 9.4 x10^3uL (1.8-7.7) Lymphocytes # (Auto) 0.9 x10^3/uL (1.0-4.8) Monocytes # (Auto) 0.6 x10^3/uL (0.0-1.1) Eosinophils # (Auto) 0.0 x10^3/uL (0.0-0.7) Basophils # (Auto) 0.0 x10^3/uL (0.0-0.2) Segmented Neutrophils % 93 % (35-66) Band Neutrophils % 2 % (0-9) Lymphocytes % 2 % (24-48) Monocytes % 3 % (0-10) Platelet Estimate Adequate (ADEQUATE) Sodium Level 137 mmol/L (136-145) Potassium Level 4.4 mmol/L (3.5-5.1) Chloride Level 102 mmol/L (98-107) Carbon Dioxide Level 23 mmol/L (21-32) Anion Gap 12 (6-14) Blood Urea Nitrogen 14 mg/dL (8-26) Creatinine 1.1 mg/dL (0.7-1.3) Estimated GFR (Cockcroft-Gault) 75.7 Glucose Level 128 mg/dL (70-99) Calcium Level 8.8 mg/dL (8.5-10.1) Medications Current Medications Sodium Chloride 1,000 ml @ 1,000 mls/hr 1X ONCE IV Last administered on 01/15/19at 20:41; Start 01/15/19 at 21:00; Stop 01/15/19 at 21:59; Status DC Ondansetron HCl (Zofran) 4 mg PRN Q8HRS PRN IV NAUSEA/VOMITING 1st choice Last administered on 01/15/19at 23:17; Start 01/15/19 at 23:00; Stop 01/16/19 at 16:26; Status DC Fentanyl Citrate (Fentanyl 2ml Vial) 50 mcg PRN Q2HRS PRN IV SEVERE PAIN Last administered on 01/17/19at 08:49; Start 01/15/19 at 23:00 Cefazolin Sodium/ Dextrose 50 ml @ 100 mls/hr 1X PREOP IV Last administered on 01/16/19at 11:49; Start 01/16/19 at 08:15; Stop 01/16/19 at 16:24; Status DC Ondansetron HCl (Zofran) 4 mg PRN Q6HRS PRN IV NAUSEA/VOMITING; Start 01/16/19 at 09:15; Stop 01/16/19 at 17:00; Status DC Fentanyl Citrate (Fentanyl 2ml Vial) 25 mcg PRN Q5MIN PRN IV MILD PAIN 1-3; Start 01/16/19 at 09:15; Stop 01/16/19 at 17:00; Status DC Fentanyl Citrate (Fentanyl 2ml Vial) 50 mcg PRN Q5MIN PRN IV MODERATE TO SEVERE PAIN Last administered on 01/16/19at 14:06; Start 01/16/19 at 09:15; Stop 01/16 at 17:00; Status DC Morphine Sulfate (Morphine Sulfate) 1 mg PRN Q10MIN PRN IV SEVERE PAIN 7-10; Start 01/16/19 at 09:15; Stop 01/16/19 at 17:00; Status DC Ringer's Solution 1,000 ml @ 30 mls/hr Q24H IV Last administered on 01/16/19at 10:54; Start 01/16/19 at 09:03; Stop 01/16/19 at 21:02; Status DC Hydromorphone HCl (Dilaudid) 0.5 mg PRN Q10MIN PRN IV SEV PAIN, Second choice; Start 01/16/19 at 09:15; Stop 01/16/19 at 17:00; Status DC Prochlorperazine Edisylate (Compazine) 5 mg PACU PRN PRN IV NAUSEA, MRX1; Start 01/16/19 at 09:15; Stop 01/16/19 at 17:00; Status DC Propofol 20 ml @ As Directed STK-MED ONCE IV ; Start 01/16/19 at 10:10; Stop 01/16/19 at 10:11; Status DC Lidocaine HCl (Lidocaine Pf 2% Vial) 5 ml STK-MED ONCE .ROUTE ; Start 01/16/19 at 10:10; Stop 01/16/19 at 10:11; Status DC Dexamethasone Sodium Phosphate (Decadron) 4 mg STK-MED ONCE .ROUTE ; Start 01/16 at 10:10; Stop 01/16/19 at 10:11; Status DC Ondansetron HCl (Zofran) 4 mg STK-MED ONCE .ROUTE ; Start 01/16/19 at 10:10; S top 01/16/19 at 10:11; Status DC Rocuronium [place] (Zemuron) 50 mg STK-MED ONCE .ROUTE ; Start 01/16/19 at 10:11; Stop 01/16/19 at 10:12; Status DC Midazolam HCl (Versed) 2 mg STK-MED ONCE .ROUTE ; Start 01/16/19 at 10:11; Stop 01/16/19 at 10:12; Status DC Fentanyl Citrate (Fentanyl 2ml Vial) 100 mcg STK-MED ONCE .ROUTE ; Start 01/16/19 at 10:12; Stop 01/16/19 at 10:13; Status DC Ketorolac Tromethamine (Toradol For Or Only) 30 mg STK-MED ONCE INJ ; Start 01/16/19 at 11:36; Stop 01/16/19 at 11:37; Status DC Succinylcholine Chloride (Anectine) 200 mg STK-MED ONCE .ROUTE ; Start 01/16/19 at 11:37; Stop 01/16/19 at 11:38; Status DC Heparin Sodium (Porcine) 1000 unit/Sodium Chloride 1,001 ml @ 1,001 mls/hr 1X ONCE IRR Last administered on 01/16/19at 12:30; Start 01/16/19 at 12:00; Stop 01/16/19 at 12:59; Status DC Bupivacaine HCl/ Epinephrine Bitart (Sensorcain-Mpf Epi 0.5%-1:816373) 30 ml STK-MED ONCE .ROUTE Last administered on 01/16/19at 12:30; Start 01/16/19 at 10:41; Stop 01/16/19 at 11:41; Status DC Iohexol (Omnipaque 300 Mg/ml) 50 ml STK-MED ONCE .ROUTE Last administered on 01/16/19at 13:08; Start 01/16/19 at 10:41; Stop 01/16/19 at 11:42; Status DC Cellulose (Surgicel Hemostat 4x8) 1 each STK-MED ONCE .ROUTE ; Start 01/16/19 at 10:41; Stop 01/16/19 at 11:42; Status DC Bisacodyl (Dulcolax Supp) 10 mg STK-MED ONCE .ROUTE ; Start 01/16/19 at 10:50; Stop 01/16/19 at 11:50; Status DC Fentanyl Citrate (Fentanyl 2ml Vial) 100 mcg STK-MED ONCE .ROUTE ; Start 01/16/19 at 12:18; Stop 01/16/19 at 12:19; Status DC Sevoflurane (Ultane) 60 ml STK-MED ONCE IH ; Start 01/16/19 at 12:23; Stop 01/16/19 at 12:24; Status DC Neostigmine Methylsulfate (Neostigmine Methylsulfate) 5 mg STK-MED ONCE .ROUTE ; Start 01/16/19 at 12:28; Stop 01/16/19 at 12:29; Status DC Glycopyrrolate (Robinul) 1 mg STK-MED ONCE .ROUTE ; Start 01/16/19 at 12:28; Stop 01/16/19 at 12:29; Status DC Propofol 20 ml @ As Directed STK-MED ONCE IV ; Start 01/16/19 at 12:54; Stop 01/16/19 at 12:55; Status DC Pantoprazole Sodium (Protonix) 40 mg DAILYAC PO Last administered on 01/17/19at 08:07; Start 01/16/19 at 14:00 Sodium Chloride (Normal Saline Flush) 3 ml QSHIFT PRN IV AFTER MEDS AND BLOOD DRAWS; Start 01/16/19 at 13:30 Ringer's Solution 1,000 ml @ 100 mls/hr Q10H IV ; Start 01/16/19 at 14:00 Dextrose (Dextrose 50%-Water Syringe) 12.5 gm PRN Q15MIN PRN IV SEE COMMENTS; Start 01/16/19 at 13:30 Acetaminophen/ Hydrocodone Bitart (Lortab 5325) 1 tab PRN Q4HRS PRN PO MILD PAIN 1-3 Last administered on 01/17/19at 08:07; Start 01/16/19 at 13:30 Ketorolac Tromethamine (Toradol 30mg Vial) 30 mg PRN Q6HRS PRN IV MILD PAIN 1-3 Last administered on 01/17/19at 03:50; Start 01/16/19 at 13:30; Stop 01/21/19 at 13:29 Docusate Sodium (Colace) 100 mg BID PO Last administered on 01/17/19 08:07; Start 01/16/19 at 21:00 Ondansetron HCl (Zofran) 4 mg PRN Q6HRS PRN IV NAUESA, 1ST CHOICE; Start 01/16/19 at 13:30 Fentanyl Citrate (Fentanyl 2ml Vial) 100 mcg STK-MED ONCE .ROUTE ; Start 01/16/19 at 13:47; Stop 01/16/19 at 13:48; Status DC Vitals/I & O Vital Sign - Last 24 Hours 01/16/19 01/16/19 01/16/19 01/16/19 10:30 13:26 13:28 13:40 Temp 97.9 97.9 97.9 97.9 97.9 97.9 Pulse 51 70 50 Resp 17 20 20 B/P (MAP) 120/85 138/83 131/87 Pulse Ox 98 98 95 O2 Delivery Room Air Room Air Room Air Room Air 01/16/19 01/16/19 01/16/19 01/16/19 13:54 13:55 14:06 14:10 Temp 97.9 98.8 97.9 98.8 Pulse 49 46 Resp 20 20 20 20 B/P (MAP) 132/84 136/92 Pulse Ox 94 94 94 94 O2 Delivery Room Air Room Air Room Air Room Air 01/16/19 01/16/19 01/16/19 01/16/19 14:35 14:54 15:00 15:30 Temp 97.6 97.6 Pulse 47 49 46 Resp 18 B/P (MAP) 133/90 (104) 113/81 (92) 128/90 (103) Pulse Ox 98 96 98 O2 Delivery Room Air Room Air 01/16/19 01/16/19 01/16/19 01/16/19 15:45 15:58 16:15 16:30 Pulse 52 82 53 57 B/P (MAP) 134/83 (100) 128/88 (101) 135/92 (106) 136/90 (105) Pulse Ox 97 97 97 95 01/16/19 01/16/19 01/16/19 01/16/19 16:45 16:46 17:00 19:30 Temp 98.2 98.2 Pulse 51 49 44 Resp 18 B/P (MAP) 125/86 (99) 128/91 (103) 120/83 (95) Pulse Ox 97 97 97 O2 Delivery Room Air Room Air 01/16/19 01/16/19 01/16/19 01/16/19 20:05 22:01 22:02 22:40 Resp 18 18 16 O2 Delivery Room Air Room Air Room Air Room Air 01/16/19 01/17/19 01/17/19 01/17/19 23:31 02:44 03:00 03:44 Temp 98.4 97.5 98.4 97.5 Pulse 46 45 Resp 18 16 16 20 B/P (MAP) 135/89 (104) 130/91 (104) Pulse Ox 95 97 97 O2 Delivery Room Air Room Air Room Air Room Air 01/17/19 01/17/19 01/17/19 01/17/19 07:00 08:00 08:07 08:49 Temp 97.7 97.7 Pulse 48 Resp 18 B/P (MAP) 116/75 (89) Pulse Ox 97 O2 Delivery Room Air Room Air Room Air Room Air Intake and Output 01/16/19 01/16/19 01/17/19 15:00 23:00 07:00 Intake Total 1350 ml 450 ml 540 ml Output Total 50 ml 750 ml 200 ml Balance 1300 ml -300 ml 340 ml JANELL CONWAY MD January 17, 2019 09:02
[2019-01-17] MEDS: IV RINGERS,LACTATED 1000ML 1,000 ML IV SCH (10:00)
[2019-01-17] MEDS: HYDROcodone/APAP 7.5/325MG 1 TAB TABLET PO PRN ×2 (10:25→13:43)
[2019-01-17 11:00] VITALS: BP 115/76
--- NOTE | 2019-01-17 11:04 | PDOC ---
SURGICAL PROGRESS NOTE Subjective pain managed ambulating urinating tolerating diet Vital Signs Vital Signs Date Time Temp Pulse Resp B/P (MAP) Pulse Ox O2 Delivery O2 Flow Rate FiO2 01/17/19 10:25 Room Air 01/17/19 07:00 97.7 48 18 116/75 (89) 97 97.7 I&O Intake and Output 01/17/19 06:59 Intake Total 2340 ml Output Total 1000 ml Balance 1340 ml Intake Oral 990 ml IV Total 1350 ml Output Urine Total 990 ml Estimated Blood Loss 10 ml # Voids 2 General: Alert, Oriented X3, Cooperative, No acute distress Abdomen: Soft, Other (lap dressings dry) Labs Laboratory Tests Test 01/15/19 20:36 01/15/19 21:40 01/17/19 04:25 White Blood Count 6.9 x10^3/uL (4.0-11.0) 11.0 x10^3/uL (4.0-11.0) Red Blood Count 4.56 x10^6/uL (4.30-5.70) 4.69 x10^6/uL (4.30-5.70) Hemoglobin 14.2 g/dL (13.0-17.5) 14.5 g/dL (13.0-17.5) Hematocrit 41.4 % (39.0-53.0) 43.3 % (39.0-53.0) Mean Corpuscular Volume 91 fL (79-100) 92 fL (79-100) Mean Corpuscular Hemoglobin 31 pg (25-35) 31 pg (25-35) Mean Corpuscular Hemoglobin Concent 34 g/dL (31-37) 34 g/dL (31-37) Red Cell Distribution Width 14.0 % (11.5-14.5) 13.9 % (11.5-14.5) Platelet Count 173 x10^3/uL (140-400) 167 x10^3/uL (140-400) Neutrophils (%) (Auto) 61 % (31-73) 86 % (31-73) Lymphocytes (%) (Auto) 25 % (24-48) 8 % (24-48) Monocytes (%) (Auto) 8 % (0-9) 6 % (0-9) Eosinophils (%) (Auto) 5 % (0-3) 0 % (0-3) Basophils (%) (Auto) 1 % (0-3) 0 % (0-3) Neutrophils # (Auto) 4.2 x10^3uL (1.8-7.7) 9.4 x10^3uL (1.8-7.7) Lymphocytes # (Auto) 1.7 x10^3/uL (1.0-4.8) 0.9 x10^3/uL (1.0-4.8) Monocytes # (Auto) 0.6 x10^3/uL (0.0-1.1) 0.6 x10^3/uL (0.0-1.1) Eosinophils # (Auto) 0.4 x10^3/uL (0.0-0.7) 0.0 x10^3/uL (0.0-0.7) Basophils # (Auto) 0.1 x10^3/uL (0.0-0.2) 0.0 x10^3/uL (0.0-0.2) Sodium Level 142 mmol/L (136-145) 137 mmol/L (136-145) Potassium Level 3.9 mmol/L (3.5-5.1) 4.4 mmol/L (3.5-5.1) Chloride Level 104 mmol/L (98-107) 102 mmol/L (98-107) Carbon Dioxide Level 29 mmol/L (21-32) 23 mmol/L (21-32) Anion Gap 9 (6-14) 12 (6-14) Blood Urea Nitrogen 17 mg/dL (8-26) 14 mg/dL (8-26) Creatinine 1.1 mg/dL (0.7-1.3) 1.1 mg/dL (0.7-1.3) Estimated GFR (Cockcroft-Gault) 75.7 75.7 BUN/Creatinine Ratio 15 (6-20) Glucose Level 102 mg/dL (70-99) 128 mg/dL (70-99) Calcium Level 9.1 mg/dL (8.5-10.1) 8.8 mg/dL (8.5-10.1) Magnesium Level 2.4 mg/dL (1.8-2.4) Total Bilirubin 0.3 mg/dL (0.2-1.0) Aspartate Amino Transf (AST/SGOT) 10 U/L (15-37) Alanine Aminotransferase (ALT/SGPT) 15 U/L (16-63) Alkaline Phosphatase 53 U/L (46-116) Total Protein 7.1 g/dL (6.4-8.2) Albumin 3.7 g/dL (3.4-5.0) Albumin/Globulin Ratio 1.1 (1.0-1.7) Lipase 162 U/L (73-393) Urine Collection Type Unknown Urine Color Yellow Urine Clarity Cloudy Urine pH 8.0 Urine Specific [place] 1.025 Urine Protein 30 mg/dL (NEG-TRACE) Urine Glucose (UA) Negative mg/dL (NEG) Urine Ketones (Stick) Negative mg/dL (NEG) Urine Blood Negative (NEG) Urine Nitrite Negative (NEG) Urine Bilirubin Negative (NEG) Urine Urobilinogen Dipstick 1.0 mg/dL (0.2 mg/dL) Urine Leukocyte Esterase Negative (NEG) Urine RBC 1-2 /HPF (0-2) Urine WBC 1-4 /HPF (0-4) Urine Squamous Epithelial Cells Few /LPF Urine Amorphous Sediment Present /HPF Urine Bacteria 0 /HPF (0-FEW) Urine Mucus Marked /LPF Segmented Neutrophils % 93 % (35-66) Band Neutrophils % 2 % (0-9) Lymphocytes % 2 % (24-48) Monocytes % 3 % (0-10) Platelet Estimate Adequate (ADEQUATE) Laboratory Tests Test 01/17/19 04:25 White Blood Count 11.0 x10^3/uL (4.0-11.0) Red Blood Count 4.69 x10^6/uL (4.30-5.70) Hemoglobin 14.5 g/dL (13.0-17.5) Hematocrit 43.3 % (39.0-53.0) Mean Corpuscular Volume 92 fL (79-100) Mean Corpuscular Hemoglobin 31 pg (25-35) Mean Corpuscular Hemoglobin Concent 34 g/dL (31-37) Red Cell Distribution Width 13.9 % (11.5-14.5) Platelet Count 167 x10^3/uL (140-400) Neutrophils (%) (Auto) 86 % (31-73) Lymphocytes (%) (Auto) 8 % (24-48) Monocytes (%) (Auto) 6 % (0-9) Eosinophils (%) (Auto) 0 % (0-3) Basophils (%) (Auto) 0 % (0-3) Neutrophils # (Auto) 9.4 x10^3uL (1.8-7.7) Lymphocytes # (Auto) 0.9 x10^3/uL (1.0-4.8) Monocytes # (Auto) 0.6 x10^3/uL (0.0-1.1) Eosinophils # (Auto) 0.0 x10^3/uL (0.0-0.7) Basophils # (Auto) 0.0 x10^3/uL (0.0-0.2) Segmented Neutrophils % 93 % (35-66) Band Neutrophils % 2 % (0-9) Lymphocytes % 2 % (24-48) Monocytes % 3 % (0-10) Platelet Estimate Adequate (ADEQUATE) Sodium Level 137 mmol/L (136-145) Potassium Level 4.4 mmol/L (3.5-5.1) Chloride Level 102 mmol/L (98-107) Carbon Dioxide Level 23 mmol/L (21-32) Anion Gap 12 (6-14) Blood Urea Nitrogen 14 mg/dL (8-26) Creatinine 1.1 mg/dL (0.7-1.3) Estimated GFR (Cockcroft-Gault) 75.7 Glucose Level 128 mg/dL (70-99) Calcium Level 8.8 mg/dL (8.5-10.1) Problem List Problems Medical Problems: (1) Acute cholecystitis Status: Acute Assessment/Plan s/p ludmila ok to ri home script on chart, FU 2 weeks GLEN VERDUZCO APRN January 17, 2019 11:04
[2019-01-17] MEDS ORDERED: DOCU-109 PO (12:02)
[2019-01-17] MEDS ORDERED: Pantoprazole PO (12:02)
[2019-01-17] MEDS ORDERED: HYDR-2765 PO (12:02)
--- NOTE | 2019-01-17 13:56 | NUR ---
Pt discharging home with self care. Discharge instructions and prescriptions discussed. Pt and significant other verbalized understanding. IV removed without complications. Pt belongings packed by pt. Pt taken via wheelchair and was secured in vehicle with significant other.
--- NOTE | 2019-01-19 15:06 | PATHOLOGY ---
[facility] Accession Number: [id number] . 01 Material submitted: . gallbladder - GALLBLADDER . 01 Clinical history: . Cholelithiasis . 02 Diagnosis: Gallbladder, cholecystectomy: - Cholelithiasis. - Chronic cholecystitis. - Focal lipogranulomata of gallbladder neck lymph node. . (JPM:mm; 01/19/2019) [facility]/01/19/2019 . 02 Comment: There is no evidence of malignancy. . (JPM:mm; 01/19/2019) . 02 Electronically signed: . Sammy Evangelista MD, Pathologist NPI- [id number] . 01 Gross description: . The specimen is received in formalin labeled "[place], [place], gallbladder" and consists of an intact, green-pink, smooth, shiny gallbladder measuring 10.7 cm in length and up to 3.5 cm in diameter. The margin is inked black. Opening reveals a lumen filled with tenacious green bile and multiple green and smooth to multifaceted calculi measuring between 0.8 cm and 3.1 cm. The mucosa is green, velvety, and focally eroded with an average wall thickness of 0.1 cm. No masses are identified. Located adjacent the gallbladder neck is a lymph node candidate measuring 0.6 x 0.5 cm. Machine Precision Etcher sections are submitted in A1-A2 with the lymph node candidate in A2. (SDY; 01/18/2019) SYU/SYU . 02 Pathologist provided ICD-10: K80.10 . 02 CPT . 633991 Specimen Comment: A courtesy copy of this report has been sent to Specimen Comment: [phone], , . Specimen Comment: Report sent to ,DR SALGADO / DR YODER Performed at: 01 [facility] [id number] [facility] [address], [place], [place] [id number] MD Ba Reynoso MD Phone: [phone] [facility]formed at: [facility] [address] [place], [place] [id number] MD Sammy Evangelista MD Phone: [phone]
== END 2019-01-17 13:55 | disposition home or self-care (01) | DRG 419 ==
LOC: ER 20:01 → 4 NORTH 23:00
PROVIDERS: ADMIT Internal Medicine; ATTEND Internal Medicine
PROC: BF131ZZ Fluoroscopy of Gallbladder and Bile Ducts using Low Osmolar Contrast (ICD-10-PCS; 2019-01-16)
PROC: 0FT44ZZ Resection of Gallbladder, Percutaneous Endoscopic Approach (ICD-10-PCS; principal; 2019-01-16 12:00)
DX: K80.00 Calculus of gallbladder with acute cholecystitis without obstruction (principal); K57.90 Diverticulosis of intestine, part unspecified, without perforation or abscess without bleeding; F17.210 Nicotine dependence, cigarettes, uncomplicated; E66.9 Obesity, unspecified; K82.8 Other specified diseases of gallbladder; K76.0 Fatty (change of) liver, not elsewhere classified; Z68.31 Body mass index [BMI] 31.0-31.9, adult
CPT/HCPCS: 36415; 74300; 76705; 80048; 80053; 81001; 83690; 83735; 85007; 85025; 88304; 96361; 96374; 96375; A7015; J0330; J0696; J1100; J1644; J1885; J2001; J2250; J2405; J2704; J2710; J3010; J3490; J7030; J7120; Q9967; 99285-25

== ENCOUNTER 2019-06-18 17:47 | Emergency (ER) | payer SELFPAY ==
[~2019-06-18] VITALS: Ht 182.9 cm; Wt 102.5 kg
[~2019-06-18 17:47] MED LIST: DOCU-109 PO; HYDR-2765 PO; Pantoprazole PO
--- NOTE | 2019-06-18 18:25 | PHYS DOC ---
Past Medical History Past Medical History: Diverticulosis (JAKUB PAYTON APRN) Past Surgical History: Cholecystectomy, Other Additional Past Surgical Histo: right ankle (JAKUB PAYTON APRN) Alcohol Use: Rarely Drug Use: Marijuana (JAKUB PAYTON APRN) Adult General Chief Complaint Chief Complaint: Neck Pain HPI HPI Patient is a 39 year old male who presents with 1 week of a sore throat and no can not swallow food and is having a hard time swallowing his saliva. (JAKUB PAYTON APRN) Review of Systems Review of Systems HENT: Denies nasal congestion. sore throat with neck swelling[] All other systems were reviewed and found to be within normal limits, except as documented in this note. (JAKUB PAYTON APRN) Current Medications Current Medications Current Medications Medications (Trade) Dose Ordered Sig/Lavelle Start Time Stop Time Status Last Admin Dose Admin Benzocaine (Hurricaine One) 1 spray 1X ONCE 06/18/19 23:00 06/18/19 23:01 06/18/19 22:43 1 SPRAY Clindamycin Phosphate 50 ml @ 100 mls/hr 1X STAT 06/18/19 20:10 06/18/19 20:39 DC 06/18/19 20:22 100 MLS/HR Dexamethasone Sodium Phosphate (Decadron) 6 mg 1X ONCE 06/18/19 18:30 06/18/19 18:31 DC 06/18/19 18:50 6 MG Info (CONTRAST GIVEN -- Rx MONITORING) 1 each PRN DAILY PRN 06/18/19 19:15 06/20/19 19:14 Iohexol (Omnipaque 300 Mg/ml) 70 ml 1X ONCE 06/18/19 19:00 06/18/19 19:02 DC 06/18/19 19:00 70 ML Ketorolac Tromethamine (Toradol 30mg Vial) 30 mg 1X ONCE 06/18/19 19:00 06/18/19 19:01 DC 06/18/19 19:06 30 MG Lidocaine HCl (Viscous Lidocaine) 15 ml 1X ONCE 06/18/19 23:00 06/18/19 23:01 06/18/19 22:43 15 ML Sodium Chloride 1,000 ml @ 1,000 mls/hr 1X ONCE 06/18/19 19:00 06/18/19 19:59 DC 06/18/19 19:06 1,000 MLS/HR (MAIKOL ALMANZA APRN) Allergies Allergies Allergies Coded Allergies Type Severity Reaction Last Updated Verified No Known Drug Allergies 01/15/19 No (MAIKOL ALMANZA APRN) Physical Exam Physical Exam Constitutional: Well developed, well nourished, no acute distress, non-toxic appearance. [] HENT: Normocephalic, atraumatic, bilateral external ears normal, oropharynx moist, no oral exudates, nose normal. Tonsils 2+ swelling. Throat reddened with white patch.[] Eyes: PERRLA, EOMI, conjunctiva normal, no discharge. [] Neck: Normal range of motion, Right neck mass and tenderness, supple, no stridor. [] Cardiovascular:Heart rate regular rhythm, no murmur [] Lungs & Thorax: Bilateral breath sounds clear to auscultation [] Abdomen: Bowel sounds normal, soft, no tenderness, no masses, no pulsatile masses. [] Skin: Warm, dry, no erythema, no rash. [] Neurologic: Alert and oriented X 3, normal motor function, normal sensory function, no focal deficits noted. [] Psychologic: Affect normal, judgement normal, mood normal. [] (JAKUB PAYTON APRN) Physical Exam Constitutional: Well developed, well nourished, no acute distress, non-toxic appearance HENT: Normocephalic, atraumatic, oropharynx moist, tonsillar edema and erythema noted consistent for tonsillar abscess Neurologic: Alert and oriented X 3, no focal deficits noted Psychologic: Affect normal, judgement normal, (MAIKOL YODER DO) Current Patient Data Vital Signs Vital Signs Date Time Temp Pulse Resp B/P (MAP) Pulse Ox O2 Delivery O2 Flow Rate FiO2 06/18/19 20:38 66 128/82 (97) 98 Room Air 06/18/19 18:00 99.0 15 99.0 (MAIKOL ALMANZA APRN) Lab Values Laboratory Tests Test 06/18/19 18:42 White Blood Count 10.8 x10^3/uL (4.0-11.0) Red Blood Count 5.06 x10^6/uL (4.30-5.70) Hemoglobin 15.9 g/dL (13.0-17.5) Hematocrit 46.5 % (39.0-53.0) Mean Corpuscular Volume 92 fL (79-100) Mean Corpuscular Hemoglobin 31 pg (25-35) Mean Corpuscular Hemoglobin Concent 34 g/dL (31-37) Red Cell Distribution Width 13.9 % (11.5-14.5) Platelet Count 174 x10^3/uL (140-400) Neutrophils (%) (Auto) 81 % (31-73) H Lymphocytes (%) (Auto) 10 % (24-48) L Monocytes (%) (Auto) 8 % (0-9) Eosinophils (%) (Auto) 0 % (0-3) Basophils (%) (Auto) 0 % (0-3) Neutrophils # (Auto) 8.8 x10^3/uL (1.8-7.7) H Lymphocytes # (Auto) 1.1 x10^3/uL (1.0-4.8) Monocytes # (Auto) 0.9 x10^3/uL (0.0-1.1) Eosinophils # (Auto) 0.0 x10^3/uL (0.0-0.7) Basophils # (Auto) 0.0 x10^3/uL (0.0-0.2) Erythrocyte Sedimentation Rate 24 (0-15) H Sodium Level 146 mmol/L (136-145) H Potassium Level 3.6 mmol/L (3.5-5.1) Chloride Level 107 mmol/L (98-107) Carbon Dioxide Level 28 mmol/L (21-32) Anion Gap 11 (6-14) Blood Urea Nitrogen 13 mg/dL (8-26) Creatinine 1.1 mg/dL (0.7-1.3) Estimated GFR (Cockcroft-Gault) 75.3 BUN/Creatinine Ratio 12 (6-20) Glucose Level 100 mg/dL (70-99) H Calcium Level 9.3 mg/dL (8.5-10.1) Total Bilirubin 0.7 mg/dL (0.2-1.0) Aspartate Amino Transferase (AST) 9 U/L (15-37) L Alanine Aminotransferase (ALT) 12 U/L (16-63) L Alkaline Phosphatase 62 U/L (46-116) Total Protein 8.8 g/dL (6.4-8.2) H Albumin 4.2 g/dL (3.4-5.0) Albumin/Globulin Ratio 0.9 (1.0-1.7) L Heterophil Agglutinins Negative (NEGATIVE) Laboratory Tests 06/18/19 18:42 Laboratory Tests 06/18/19 18:42 (MAIKOL ALMANZA APRN) Lab Values Laboratory Tests Test 06/18/19 18:42 Heterophil Agglutinins Negative (NEGATIVE) (JAKUB PAYTON APRN) EKG EKG [] (JAKUB PAYTON APRN) Radiology/Procedures Radiology/Procedures [] (JAKUB PAYTON APRN) Radiology/Procedures [facility] [address] [place] [address] IMAGING REPORT Signed PATIENT: MARNI IRENEUNT: [id number] : 1980 LOCATION: ER AGE: 39 SEX: M EXAM STATUS: REG ER ORD. PHYSICIAN: JAKUB PAYTON APRN REASON: neck mass, pain PROCEDURE: CT SOFT TISSUE NECK W/CONTRAST EXAM: CT NECK SOFT TISSUES WITH CONTRAST. HISTORY: Right neck pain, palpable mass. TECHNIQUE: Computed tomography of the neck soft tissues was performed after the intravenous administration of iodinated contrast. COMPARISON: None. FINDINGS: Images of the lung apices reveal a normal variant azygous fissure. Bone windows reveal no suspicious lesions. There are mucus retention cysts bilaterally in the maxillary sinuses and mucosal thickening in the right ethmoid air cells. A low-attenuation focus within the right parapharyngeal space inferiorly measures 1.2 x 0.8 cm and may represent a small abscess or phlegmonous change. The pharyngeal tonsils are enlarged bilaterally and significantly narrow the nasopharyngeal airway. There is no retropharyngeal edema. The submandibular glands are hyperenhancing on the right greater than left suggesting sialoadenitis. The parotid glands are unremarkable. Right submandibular lymph nodes are prominent measuring up to 2.6 x 1.1 cm and are likely reactive in this setting. There are no clear laryngeal lesions. The thyroid gland reveals no focal lesions. There are no pathologically enlarged cervical lymph nodes. IMPRESSION: 1. 1.2 cm right parapharyngeal abscess versus phlegmonous change. 2. Bilateral enlargement of the pharyngeal tonsils, narrowing the airway. 3. Bilateral hyperenhancement of the submandibular glands suggests sialoadenitis. Reactive right submandibular adenopathy. *One or more of the following individualized dose reduction techniques were utilized for this examination: 1. Automated exposure control. 2. Adjustment of the mA and/or kV according to patient size. 3. Use of iterative reconstruction technique. Electronically signed by: Rosalva Chowdhury MD (06/18/2019 7:59 PM) [facility] DICTATED and SIGNED BY: DONATO CHOWDHURY MD DATE: 06/18/191958 (MAIKOL ALMANZA APRN) Course & Med Decision Making Course & Med Decision Making Right neck swelling and tenderness. Right tonsil 2+ swollen with exudates and left 1+. Uvula is midline. Denies fevers. Rates pain at a 8/10. Alert and oriented. Speaks in full sentences but voice is muffled. Lungs are clear in all lobes. Denies nausea or vomiting, cough, soa, chest pain, ear pain, nasal congestion, dental caries. dental pain, headache, dizziness. Patient also complains of patches with cohen scales on his left lateral leg that itches and has been there for a month. Rapid strep negative. 1899: I have signed this patient out to Maikol Almanza MANUFACTURING OPERATOR. (JAKUB PAYTON APRN) Course & Med Decision Making Took over patient at 1900. CT scan shows right parapharyngeal abscess. Will attempt drainage and order Clindamycin. Procedure Note: Gave patient Hurricane spray and had him swallow and spit Viscous Lidocaine. This was done with Dr. Yoder at bedside. Took an 18 G needle and aspirated the abscess. Patient tolerated well. Will place on Clindamycin and have follow up with ENT. (MAIKOL ALMANZA APRN) Dragon Disclaimer Dragon Disclaimer This electronic medical record was generated, in whole or in part, using a voice recognition dictation system. (JAKUB PAYTON APRN) Departure Departure Impression: Primary Impression: Parapharyngeal abscess Disposition: HOME, SELF-CARE Condition: STABLE Referrals: NO PCP (PCP) BETH RICH MD Patient Instructions: Abscess, Care After Additional Instructions: Thank you for [facility]. We appreciate you trusting us with your care. If any additional problems come up don't hesitate to return to visit us. Please follow up with your primary care provider so they can plan additional care if needed and know about the problem that you had. If symptoms worsen come back to the Emergency Department. Any concerning symptoms that start such as chest pain, shortness of air, weakness or numbness on one side of the body, running high fevers or any other concerning symptoms return to the ER. You have been prescribed an antibiotic today to help fight your infection. Please take all of the antibiotic as directed. If after 48 hours the infection is not improving, please return for more care. If the infection worsens, return to ER for additional care. Scripts Prednisone (PREDNISONE) 20 Mg Tablet 1 TAB PO DAILY for 5 Days, #5 TAB Prov: MAIKOL ALMANZA APRN 06/18/19 Clindamycin Hcl (CLINDAMYCIN HCL) 150 Mg Capsule 450 MG PO TID for 7 Days, #63 CAP Prov: MAIKOL ALMANZA APRN 06/18/19 Attending Signature Attending Signature I have personally interviewed and examined the patient. All charts, labs, and imaging studies were reviewed. I agree with the PA/MANUFACTURING OPERATOR's findings, exam, and plan. (MAIKOL YODER DO) JAKUB PAYTON APRN Jun 18, 2019 18:25 MAIKOL ALMANZA APRN Jun 18, 2019 20:07 MAIKOL YODER DO Jun 19, 2019 04:24
[2019-06-18] MEDS ORDERED: DEXAMETHASONE SOD PHOS 4 MG/ML VIAL IVP ONE (18:30)
[2019-06-18 19:00] LABS: MONONUCLEOSIS PATIENT NEGATIVE (NEGATIVE)
[2019-06-18] MEDS ORDERED: IOHEXOL 300 MG/ML 100ML VIAL. IV ONE (19:00)
[2019-06-18] MEDS ORDERED: IV NORMAL SALINE 1000ML BAG 1,000 ML IV ONE (19:00)
[2019-06-18] MEDS ORDERED: KETOROLAC 30 MG/ML VIAL. IVP ONE (19:00)
[2019-06-18 19:04] LABS: BASO % 0 % (0-3); CALCIUM 9.3 mg/dL (8.5-10.1); CREATININE 1.1 mg/dL (0.7-1.3); EOS % 0 % (0-3); GFR 75.3; HEMATOCRIT 46.5 % (39.0-53.0); HEMOGLOBIN 15.9 g/dL (13.0-17.5); LYMPH # 1.1 x10^3/uL (1.0-4.8); LYMPH % 10 % (24-48); MEAN CORPUSCULAR HEMOGLOBIN 31 pg (25-35); MEAN CORPUSCULAR HGB CONC 34 g/dL (31-37); MEAN CORPUSCULAR VOLUME 92 fL (79-100); MONO # 0.9 x10^3/uL (0.0-1.1); MONO % 8 % (0-9); NEUT # 8.8 x10^3/uL (1.8-7.7); NEUT % 81 % (31-73); PLATELET COUNT 174 x10^3/uL (140-400); POTASSIUM 3.6 mmol/L (3.5-5.1); RED BLOOD COUNT 5.06 x10^6/uL (4.30-5.70); RED CELL DISTRIBUTION WIDTH 13.9 % (11.5-14.5); WHITE BLOOD COUNT 10.8 x10^3/uL (4.0-11.0)
[2019-06-18 19:10] LABS: ALBUMIN 4.2 g/dL (3.4-5.0); ALBUMIN/GLOBULIN RATIO 0.9 (1.0-1.7); TOTAL BILIRUBIN 0.7 mg/dL (0.2-1.0); TOTAL PROTEIN 8.8 g/dL (6.4-8.2)
[2019-06-18] MEDS ORDERED: CONTRAST GIVEN. MC PRN (19:15)
--- NOTE | 2019-06-18 20:01 | RAD ---
EXAM: CT NECK SOFT TISSUES WITH CONTRAST. HISTORY: Right neck pain, palpable mass. TECHNIQUE: Computed tomography of the neck soft tissues was performed after the intravenous administration of iodinated contrast. COMPARISON: None. FINDINGS: Images of the lung apices reveal a normal variant azygous fissure. Bone windows reveal no suspicious lesions. There are mucus retention cysts bilaterally in the maxillary sinuses and mucosal thickening in the right ethmoid air cells. A low-attenuation focus within the right parapharyngeal space inferiorly measures 1.2 x 0.8 cm and may represent a small abscess or phlegmonous change. The pharyngeal tonsils are enlarged bilaterally and significantly narrow the nasopharyngeal airway. There is no retropharyngeal edema. The submandibular glands are hyperenhancing on the right greater than left suggesting sialoadenitis. The parotid glands are unremarkable. Right submandibular lymph nodes are prominent measuring up to 2.6 x 1.1 cm and are likely reactive in this setting. There are no clear laryngeal lesions. The thyroid gland reveals no focal lesions. There are no pathologically enlarged cervical lymph nodes. IMPRESSION: 1. 1.2 cm right parapharyngeal abscess versus phlegmonous change. 2. Bilateral enlargement of the pharyngeal tonsils, narrowing the airway. 3. Bilateral hyperenhancement of the submandibular glands suggests sialoadenitis. Reactive right submandibular adenopathy. *One or more of the following individualized dose reduction techniques were utilized for this examination: 1. Automated exposure control. 2. Adjustment of the mA and/or kV according to patient size. 3. Use of iterative reconstruction technique. Electronically signed by: Rosalva Chowdhury MD (06/18/2019 7:59 PM) [facility]
[2019-06-18] MEDS ORDERED: CLINDAMYCIN 600MG PREMIX 50 ML IV STA (20:10)
[2019-06-18] MEDS ORDERED: LIDOCAINE 2% VISCOUS 15 ML SOLUTION. SWSW ONE ×2 (20:30→23:00)
[2019-06-18] MEDS ORDERED: BENZOCAINE ONE 20% MUCOSAL SPRAY. MM ×2 (20:30→23:00)
[2019-06-18] MEDS ORDERED: CLIN150C14 PO (22:59)
[2019-06-18] MEDS ORDERED: PRED20TA PO (22:59)
[2019-06-18 23:19] VITALS: BP 132/95
== END 2019-06-18 23:10 | disposition home or self-care (01) ==
LOC: ER 17:47
DX: J39.1 Other abscess of pharynx (principal)
CPT/HCPCS: 36415; 70491; 80053; 85025; 85651; 86308; 87070; 87880; 96365; 96375; 99285; J1100; J1885; J3490; J7030; Q9967; 42720